=== PATIENT | female | born 1950 | race Caucasian/White ===

== ENCOUNTER 2024-02-23 22:35 | Emergency (ER) | payer MEDICARE, OTHER ==
[~2024-02-23] VITALS: Ht 139.7 cm; Wt 80.7 kg
[2024-02-23] MEDS: IV NS 0.9% 1,000 ML BAG IV ONE (23:46)
[2024-02-23] MEDS ORDERED: ACETAMINOPHEN 325 MG TABLET ONE (23:46)
[2024-02-23] MEDS: ACETAMINOPHEN ES 500 MG TABLET PO ONE (23:48)
[2024-02-23] MEDS ORDERED: ACETAMINOPHEN ES 500 MG TABLET ONE (23:48)
[2024-02-23 23:55] LABS: BASOPHILS % (AUTO) 0.3 % (0.0-2.0); EOSINOPHILS # (AUTO) 0.1 K/uL (0.0-0.7); EOSINOPHILS % (AUTO) 1.6 % (0.0-6.0); HEMATOCRIT 36 % (33-45); LYMPHOCYTES # (AUTO) 0.6 K/uL (0.8-4.8); LYMPHOCYTES % (AUTO) 9.3 % (20.0-44.0); MEAN CORPUSCULAR HEMOGLOBIN 28 PG (26.0-33.0); MEAN CORPUSCULAR HGB CONC 33 g/dl (31.0-36.0); MEAN CORPUSCULAR VOLUME 86 fL (82-100); MONOCYTES # (AUTO) 0.5 K/uL (0.1-1.30); MONOCYTES % (AUTO) 7.6 % (2.0-12.0); NEUTROPHILS # (AUTO) 5.6 K/uL (1.8-8.9); NEUTROPHILS % (AUTO) 81.2 % (43.0-81.0); PLATELET COUNT (AUTO) 141 K/uL (150-450); RED BLOOD CELL COUNT(AUTO) 4.22 MIL/uL (4.0-5.2); WHITE BLOOD COUNT (AUTO) 6.8 K/uL (4.3-11.0)
[2024-02-24 00:07] LABS: INR 1.17 (0.91-1.10); PARTIAL THROMBOPLASTIN TIME 28.3 SEC (24.3-34.3); PROTHROMBIN TIME 12.3 SECS (9.2-11.1)
[2024-02-24 00:09] LABS: CALCIUM, SERUM 8.6 mg/dL (8.5-10.1); CARBON DIOXIDE 26 mmol/L (21-32); CHLORIDE 107 mmol/L (98-107); CREATININE 1.7 mg/dL (0.6-1.3); GLUCOSE 124 mg/dL (74-106); SODIUM SERUM 143 mmol/L (136-145); UREA NITROGEN, BLOOD 25 mg/dL (7-18)
[2024-02-24 00:14] LABS: ALANINE AMINOTRANSFERASE 40 U/L (12-78); ALBUMIN 3.7 g/dL (3.4-5.0); ALKALINE PHOSPHATASE 114 U/L (46-116); ASPARTATE AMINOTRANSFERASE 44 U/L (15-37); BILIRUBIN,DIRECT 0.2 mg/dL (0.0-0.2); BILIRUBIN,TOTAL 0.5 mg/dL (0.2-1.0); TOTAL PROTEIN, SERUM 8.3 g/dL (6.4-8.2)
[2024-02-24 00:16] LABS: LACTIC ACID 1.4 mmol/L (0.4-2.0)
[2024-02-24 00:41] LABS: APPEARANCE,URINE CLEAR (CLEAR); BILIRUBIN,URINE NEGATIVE (NEGATIVE); BLOOD, URINE NEGATIVE Ery/uL (NEGATIVE); COLOR,URINE YELLOW (YELLOW); KETONES,URINE NEGATIVE (NEGATIVE); LEUKOCYTE ESTERASE ,URINE NEGATIVE (NEGATIVE); NITRITE, URINE NEGATIVE (NEGATIVE); PH,URINE 6.5 (5.0-8.0); PROTEIN,URINE NEGATIVE (NEGATIVE); UGLUCOSE 2+ mg/dL (NEGATIVE); UROBILINOGEN,URINE 0.2 EU/dL (0.2)
[2024-02-24] MEDS ORDERED: ALBU8.5H8 INH (02:24)
[2024-02-24] MEDS ORDERED: PRED50TA PO (02:24)
[2024-02-24 02:46] VITALS: BP 153/62; TEMP 98.8; O2SAT 98
== END 2024-02-24 02:46 | disposition home or self-care (01) ==
LOC: ER 22:35
DX: U07.1 COVID-19 (principal); R09.02 Hypoxemia
CPT/HCPCS: 99285; 96360; 71045; 87426; 93005; 84145; 85025; 80048; 87040; 83605; 80076; 36415; 84484; 85730; 87086; 81003; J7030